=== PATIENT | female | born 1980 | race Two or more races ===

== ENCOUNTER 2022-06-22 08:15 | Emergency (ER) | payer MEDICAID, OTHER ==
[~2022-06-22] VITALS: Ht 160 cm; Wt 88.6 kg
[2022-06-22 09:00] VITALS: BP 122/86
[2022-06-22] MEDS ORDERED: PROM1SOL4 PO (09:29)
[2022-06-22] MEDS ORDERED: IBUP800T27 PO (09:29)
[2022-06-22] MEDS ORDERED: AMOX-277 PO (09:29)
== END 2022-06-22 09:46 | disposition home or self-care (01) ==
LOC: ER 08:22
DX: J03.90 Acute tonsillitis, unspecified (principal); J20.9 Acute bronchitis, unspecified; H66.92 Otitis media, unspecified, left ear; R07.89 Other chest pain
CPT/HCPCS: 71045

== ENCOUNTER → 2022-07-13 | Emergency (ER) | payer MEDICAID, OTHER ==
[~2022-07-13] VITALS: Ht 160 cm; Wt 104.5 kg
[~2022-07-13] MED LIST: ACETAMINOPHEN 325 MG TAB PO ONE; AMOX-277 PO; CYCLOBENZAPRINE HCL 10 MG TAB PO ONE; HYDROcodone-ACET 5/325MG TAB PO ONE; IBUP800T27 PO; IOHEXOL 300 MG/ML 100ML BOTTLE IJ ONE; LACTATED RINGER'S 1,000 ML IV ONE; PROM1SOL4 PO; TETANUS-DIPTH-ACEL PERTUSSIS 0.5ML SYR Tdap IM ONE; cefTRIAXone 1GM/50ML D5W 50 ML IV ONE
[2022-07-13 07:09] LABS: Basophils # (auto) 0 10 ^3/uL (0-0.2); Eosinophils # (auto) 0.1 10 ^3/uL (0-0.8); Eosinophils % (auto) 0.6 % (0.0-7.0); Hemoglobin 11.3 g/dL (12.2-16.2); Lymphocytes # (auto) 1.2 10 ^3/uL (0.4-5.4); Nucleated Red Blood Cells % 0.1 %
[2022-07-13 07:11] LABS: Basophils % (auto) 0.2 % (0.0-2.0); Hematocrit 36.7 % (36.0-46.0); Lymphocytes % (auto) 12.1 % (10.0-50.0); Mean Corpuscular Hgb Conc. 30.7 g/dL (32.0-36.0); Mean Corpuscular Volume 71.4 fL (80.0-100.0); Monocytes # (auto) 0.4 10 ^3/uL (0-1.3); Neutrophils # (auto) 8.1 10 ^3/uL (1.6-8.6); Neutrophils % (auto) 83.1 % (37.0-80.0); Red Blood Cells 5.13 10^6/uL (4.0-5.20); White Blood Cell 9.7 10^3/uL (4.4-10.8)
[2022-07-13 07:25] LABS: Albumin 3.4 g/dL (3.4-5.0); BUN/Creatinine Ratio 16.3; Calcium 8.9 mg/dL (8.5-10.1); Potassium 4.7 mmol/L (3.5-5.1)
[2022-07-13 07:27] LABS: Bilirubin, Total 0.3 mg/dL (0.2-1.0); Lactic Acid w/Reflex 2.5 mmol/L (0.4-2.0); Total Protein 7.1 g/dL (6.4-8.2)
[2022-07-13 12:18] LABS: Urine Bacteria NONE SEEN /hpf (None Seen); Urine Blood 3+ /uL (Negative); Urine Mucus FEW (None Seen); Urine WBC 54 /hpf (0 - 5)
[2022-07-13 12:49] LABS: Urine Specific Gravity > 1.050 (1.001-1.035)
[2022-07-13 17:45] VITALS: BP 162/83
== END | disposition short-term general hospital (02) ==
LOC: ER 05:40
DX: S12.600A Unspecified displaced fracture of seventh cervical vertebra, initial encounter for closed fracture (principal); S22.019A Unspecified fracture of first thoracic vertebra, initial encounter for closed fracture; S22.029A Unspecified fracture of second thoracic vertebra, initial encounter for closed fracture; T14.8XXA Other injury of unspecified body region, initial encounter; Z20.822 Contact with and (suspected) exposure to COVID-19; Z79.1 Long term (current) use of non-steroidal anti-inflammatories (NSAID); Z79.2 Long term (current) use of antibiotics; Z79.899 Other long term (current) drug therapy; Z91.040 Latex allergy status; V47.5XXA Car driver injured in collision with fixed or stationary object in traffic accident, initial encounter; Y93.89 Activity, other specified; Y92.410 Unspecified street and highway as the place of occurrence of the external cause; Y99.8 Other external cause status
CPT/HCPCS: 36415; 70450; 71045; 71260; 72125; 74177; 80053; 81001; 81025; 83605; 84484; 85025; 86850; 86900; 86901; 87426; 90471; 90715; 93005; 96365; 99285; J0696; Q9967

== ENCOUNTER 2023-04-07 14:41 | Emergency (ER) | payer MEDICAID, OTHER ==
[~2023-04-07] VITALS: Ht 160 cm; Wt 117.3 kg
[~2023-04-07 14:41] MED LIST changes: -ACETAMINOPHEN 325 MG TAB PO ONE; -AMOX-277 PO; +AMOX875T4 PO; -CYCLOBENZAPRINE HCL 10 MG TAB PO ONE; -HYDROcodone-ACET 5/325MG TAB PO ONE; +IBUP-1456 PO; -IBUP800T27 PO; -IOHEXOL 300 MG/ML 100ML BOTTLE IJ ONE; -LACTATED RINGER'S 1,000 ML IV ONE; -TETANUS-DIPTH-ACEL PERTUSSIS 0.5ML SYR Tdap IM ONE; -cefTRIAXone 1GM/50ML D5W 50 ML IV ONE
[2023-04-07 15:01] VITALS: BP 142/98; PULSE 103; RESP 18; O2SAT 100
[2023-04-07] MEDS ORDERED: SODIUM CHLORIDE 0.9% 1,000 ML IV ONE (15:15)
[2023-04-07] MEDS ORDERED: SODIUM CHLORIDE 0.9% 500 ML IVB ONE (15:15)
[2023-04-07 15:30] LABS: Basophils # (auto) 0 10 ^3/uL (0-0.2); Basophils % (auto) 0.2 % (0.0-2.0); Eosinophils # (auto) 0.1 10 ^3/uL (0-0.8); Lymphocytes # (auto) 1.2 10 ^3/uL (0.4-5.4); Monocytes # (auto) 0.3 10 ^3/uL (0-1.3); Neutrophils # (auto) 3.6 10 ^3/uL (1.6-8.6); Nucleated Red Blood Cells % 0.1 %
[2023-04-07 15:31] LABS: Eosinophils % (auto) 1.5 % (0.0-7.0); Hematocrit 34.7 % (36.0-46.0); Hemoglobin 10.7 g/dL (12.2-16.2); Lymphocytes % (auto) 23.7 % (10.0-50.0); Mean Corpuscular Hemoglobin 21.3 pg (28.0-32.0); Mean Corpuscular Volume 68.7 fL (80.0-100.0); Monocytes % (auto) 5.8 % (0.0-12.0); Neutrophils % (auto) 68.8 % (37.0-80.0); Red Blood Cells 5.04 10^6/uL (4.0-5.20); Red Cell Distribution Width 19.4 % (11.8-14.3); White Blood Cell 5.2 10^3/uL (4.4-10.8)
[2023-04-07 15:41] LABS: INR 1.04 (0.9-1.15); Partial Thromboplastin Time 29.1 SEC (24.5-34.5); Prothrombin Time 10.9 sec (9.3-11.8)
[2023-04-07 15:49] LABS: Alanine Aminotransferase 29 U/L (7-40); Alkaline Phosphatase 172 U/L (46-116); Calcium 8.8 mg/dL (8.7-10.4); Carbon Dioxide 25 mmol/L (20-30); Chloride 105 mmol/L (98-107); Glucose 188 mg/dL (74-106); Potassium 3.9 mmol/L (3.5-5.1)
[2023-04-07 15:50] LABS: Albumin 4.4 g/dL (3.2-4.8); Anion Gap 7 (5-15); Aspartate Aminotransferase 23 U/L (13-40); BUN/Creatinine Ratio 9.9 (10.0-20.0); Bilirubin, Total 0.2 mg/dL (0.2-1.0); Blood Urea Nitrogen 7 mg/dL (9-23); Sodium 137 mmol/L (136-145)
[2023-04-07 15:51] LABS: Total Protein 6.7 g/dL (5.7-8.2)
[2023-04-07 16:06] LABS: Urine Bacteria NONE SEEN /hpf (None Seen); Urine Blood 3+ /uL (Negative); Urine Clarity HAZY (Clear); Urine Color PINK (Yellow); Urine Protein, UAD 1+ (Negative); Urine Specific Gravity 1.015 (1.001-1.035); Urine Urobilinogen Normal (Negative); Urine WBC 23 /hpf (0 - 5)
[2023-04-07] MEDS ORDERED: NITR-87 PO (19:12)
== END 2023-04-07 20:57 | disposition home or self-care (01) ==
LOC: ER 14:41
DX: D25.9 Leiomyoma of uterus, unspecified (principal); R10.2 Pelvic and perineal pain; N85.2 Hypertrophy of uterus; D50.0 Iron deficiency anemia secondary to blood loss (chronic); N93.9 Abnormal uterine and vaginal bleeding, unspecified; N39.0 Urinary tract infection, site not specified; Z98.890 Other specified postprocedural states; Z91.040 Latex allergy status; Z79.899 Other long term (current) drug therapy
CPT/HCPCS: 36415; 76830; 76856; 80053; 81001; 83690; 83735; 84702; 85025; 85610; 85730

== ENCOUNTER 2025-05-26 13:30 | Inpatient (IN) | payer MEDICAID, OTHER ==
[~2025-05-26] VITALS: Ht 160 cm; Wt 128.0 kg
[2025-05-26 13:30] VITALS: PULSE 87; RESP 15; O2SAT 100
[~2025-05-26 13:30] MED LIST changes: +NITR-87 PO
--- NOTE | 2025-05-26 13:36 | ED.PDOC ---
HPI (NEURO) HPI Comments 44 year old female with PMHx CVA-x2 presents to the ED with a chief complaint of weakness onset today. Patient came to [facility] ICU to visit her father, was with her daughters, when she began experiencing dizziness, blurred vision, weakness, facial droop, became unresponsive. Rapid response was called, patient was brought to ED. Upon ED arrival, patient is not following commands, has facial drooping, LT sided weakness. Code stroke was activated. Daughter states patient has been experiencing nausea/vomiting, headache for the past 3 days, has history of 2 CVA in the past. Currently on Aspirin. No other symptoms or modifying factors present at this time. Time Seen by MD: 13:25 Primary Care Provider: [facility] prim care Reviewed Notes: Medications, Allergies Information Source: Patient Mode of Arrival: Wheelchair Severity: Moderate Timing: Minutes Duration: Since onset Prehospital treatment: None Weakness Location: (L) Sided Symptoms: Weakness, Change of vision, Other Before: Normal History of: CVA Modifying factors: Nothing Past Medical History PAST MEDICAL HISTORY: Anemia, CVA Surgical History: [employer] History: Denies all [employer]ER Hx Family History Family History: Reviewed,noncontributory to illness, Unknown Social History Smoker: Non-Smoker Alcohol: Denies ETOH Use Drugs: Denies Drug Use Lives In: Home Constitutional: denies: chills, diaphoresis, fatigue, fever, malaise, sweats, weakness, others EENTM: denies: blurred vision, double vision, ear bleeding, ear discharge, ear drainage, ear pain, ear ringing, eye pain, eye redness, hearing loss, mouth pain, mouth swelling, nasal discharge, nose bleeding, nose congestion, nose pain, photophobia, tearing, throat pain, throat swelling, voice changes, others Cardiovascular: denies: chest pain, dizzy spells, diaphoresis, Dyspnea on exertion, edema, irregular heart beat, left arm pain, lightheadedness, palpitations, PND, syncope, others Gastrointestinal: denies: abdomen distended, abdominal pain, blood streaked bowels, constipated, diarrhea, dysphagia, difficulty swallowing, hematemesis, melena, nausea, poor appetite, poor fluid intake, rectal bleeding, rectal pain, vomiting, others Genitourinary: denies: abnormal vagina bleeding, burning, dyspareunia, dysuria, flank pain, frequency, hematuria, incontinence, pain, , vagina discharge, urgency, others Neurological: reports: dizziness, headache, others (facial drooping); denies: fainting, left sided numbness, left sided weakness, numbness, paresthesia, pre- existing deficit, right sided numbness, right sided weakness, seizure, speech problems, tingling, tremors, weakness Musculoskeletal: denies: back pain, gout, joint pain, joint swelling, muscle pain, muscle stiffness, neck pain, others Integumetry: denies: bruises, change in color, change in hair/nails, dryness, laceration, lesions, lumps, rash, wounds, others Allergic/Immunocompromised: denies: Difficulty Healing, Frequent Infections, Hives, Itching, others Hematologic/Lymphatic: denies: anemia, blood clots, easy bleeding, easy bruising, swollen glands, others Endocrine: denies: excessive hunger, excessive sweating, excessive thirst, excessive urination, flushing, intolerance to cold, intolerance to heat, unexpla ined weight gain, unexplained weight loss, others Psychiatric: denies: anxiety, bipolar disorder, depression, hopeless, panic disorder, schizophrenia, sleepless, suicidal, others All Other Systems: Reviewed and Negative Physical Exam General Appearance: Severe Distress HEENT: PERRL/EOMI Neck: Normal Inspection Respiratory: No Respiratory Distress Cardiovascular: No Edema Breast Exam: Deferred Gastrointestinal: Non Tender Genitalia: Deferred Pelvic: Deferred Rectal: Deferred Extremities: No pedal edema Neurologic: Other (LT sided facial dropped, LT sided weakness, not following commands) Cerebellar Function: NOT DONE Reflexes: NOT DONE Skin: Normal Color Lymphatic: NOT DONE Was a procedure done? Was a procedure done?: No Differential Diagnosis (SZ) Seizure: Hypocalcemia, Hypoglycemia, Hyponatremia CVA: CVA, Hypoxemia, TIA General Weakness: Anemia, CVA, Dehydration Headache: Migraine, Closed Head Injury, CVA X-Ray, Labs, Meds, VS Vital Signs Date Time Temp Pulse Resp B/P (MAP) Pulse Ox O2 Delivery O2 Flow Rate FiO2 05/26/25 13:30 98.8 84 20 126/90 100 98.8 Lab Test 05/26/25 14:52 05/26/25 13:54 05/26/25 13:50 Range/Units Troponin I High Sensitivity Pending < 3 L </=34 ng/L Blood Gas Specimen Type Arterial Blood Gas Sample Site Right radial Blood Gas Patient Temperature 37.0 Arterial Blood Date Drawn [id number] Arterial Blood pH 7.426 7.350-7.450 Arterial Blood Partial Pressure CO2 39.9 32.0-45.0 mmHg Arterial Blood Partial Pressure O2 87.5 83.0-108.0 mmHg Arterial Blood HCO3 25.7 21.0-28.0 mmol/L Arterial Blood Oxygen Saturation 95.7 94.0-98.0 % Arterial Blood Base Excess 1.3 -2.0-3.0 mmol/L Arterial Blood Oxyhemoglobin 94.4 94.0-98.0 % Arterial Blood Carboxyhemoglobin 1.1 0.5-1.5 % Arterial Blood Methemoglobin 0.3 0.0-1.5 % Arterial Blood Deoxyhemoglobin 4.2 0.0-5.0 % Zeus Test Yes Blood Gas Total Hemoglobin 14.10 12.0-16.0 g/dL Blood Gas Liter Flow 2.00 Blood Gas Modality Nasal cannula FiO2 % 28.0 White Blood Count 6.7 4.4-10.8 10^3/uL Red Blood Count 5.30 H 4.0-5.20 10^6/uL Hemoglobin 13.7 12.2-16.2 g/dL Hematocrit 41.7 36.0-46.0 % Mean Corpuscular Volume 78.6 L 80.0-100.0 fL Mean Corpuscular Hemoglobin 25.8 L 28.0-32.0 pg Mean Corpuscular Hemoglobin Concent 32.8 32.0-36.0 g/dL Red Cell Distribution Width 17.3 H 11.8-14.3 % Platelet Count 283 140-450 10^3/uL Mean Platelet Volume 7.0 6.9-10.8 fL Neutrophils (%) (Auto) 78.1 37.0-80.0 % Lymphocytes (%) (Auto) 16.4 10.0-50.0 % Monocytes (%) (Auto) 5.1 0.0-12.0 % Eosinophils (%) (Auto) 0.3 0.0-7.0 % Basophils (%) (Auto) 0.1 0.0-2.0 % Neutrophils # (Auto) 5.3 1.6-8.6 10 ^3/uL Lymphocytes # (Auto) 1.1 0.4-5.4 10 ^3/uL Monocytes # (Auto) 0.3 0-1.3 10 ^3/uL Eosinophils # (Auto) 0 0-0.8 10 ^3/uL Basophils # (Auto) 0 0-0.2 10 ^3/uL Nucleated Red Blood Cells 0.3 % Prothrombin Time 10.8 9.3-11.8 sec Prothrombin Time INR 1.02 0.9-1.15 Activated Partial Thromboplast Time 27.8 24.5-34.5 SEC Sodium Level 140 136-145 mmol/L Potassium Level 3.6 3.5-5.1 mmol/L Chloride Level 102 98-107 mmol/L Carbon Dioxide Level 27 20-31 mmol/L Anion Gap 11 5-15 Blood Urea Nitrogen 10 9-23 mg/dL Creatinine 0.89 0.550-1.02 mg/dL Glomerular Filtration Rate Calc 82 >90 mL/min BUN/Creatinine Ratio 11.2 10.0-20.0 Serum Glucose 140 H 74-106 mg/dL Calcium Level 9.8 8.7-10.4 mg/dL Magnesium Level 2.0 1.6-2.6 mg/dL Total Bilirubin 0.4 0.2-1.0 mg/dL Aspartate Amino Transferase (AST) 19 13-40 U/L Alanine Aminotransferase (ALT) 24 7-40 U/L Alkaline Phosphatase 184 H 46-116 U/L B-Type Natriuretic Peptide 8.55 0-100 pg/mL Total Protein 7.8 5.7-8.2 g/dL Albumin 4.8 3.2-4.8 g/dL Current Medications Medications (Trade) Dose Ordered Sig/Ana Route Start Time Stop Time Status Last Admin Sodium Chloride 1,000 ml @ 1,000 mls/hr Q1H ONCE IV 05/26/25 14:15 05/26/25 15:14 05/26/25 14:55 Metoclopramide HCl (Reglan Injection) 10 mg ONCE ONCE IV 05/26/25 14:15 05/26/25 14:16 DC 05/26/25 14:[address] [address] Ph: [phone] DIAGNOSTIC IMAGING Diagnostic Imaging Report : [id number] Signed PATIENT: BRADENTAYE SKYLARACCT: [id number] UNIT: [id number] : 1980 LOC: ER ROOM / BED: / AGE / SEX: 44 / F ADM STATUS: REG ER SERVICE 30 ORDERING PHYSICIAN: HATTIE SHERIDAN MD PROCEDURE(s): CTH - STROKE CTH REASON: facial droop ORDER NUMBER(s): [id number], ACCESSION NUMBER(s): [id number] CT STROKE CTH INDICATION: facial droop EXAM DATE: 05/26/2025 01:36 PM COMPARISON: HEAD WITHOUT CONTRAST on DOS: 07/13/22 TECHNIQUE: CT of the head without intravenous contrast. RADIATION DOSE: CTDIvol: 25 mGy, DLP: 250 mGy*cm FINDINGS: There is no evidence of acute intracranial hemorrhage, extra-axial collection, mass effect, midline shift, herniation or hydrocephalus. The ventricles, sulci and cisterns are age appropriate. The todd-white differentiation is intact. The visualized paranasal sinuses and mastoid air cells are clear. The surrounding soft tissues and osseous structures are unremarkable. Moderate periventricular white matter disease is present, likely secondary to microvascular angiopathy. IMPRESSION: No evidence of acute intracranial hemorrhage, mass effect or hydrocephalus. ATED BY: SARAH VALLE MD DICTATED DATE/TIME: 05/26/251417 SIGNED BY: SARAH VALLE MD SIGNED DATE/TIME: 05/26/251417 CC: [place] [id number] Ph: [phone] DIAGNOSTIC IMAGING Diagnostic Imaging Report : [id number] Signed PATIENT: BRADENTAYE SKYLARACCT: [id number] UNIT: [id number] : 1980 LOC: ER ROOM / BED: / AGE / SEX: 44 / F ADM STATUS: REG ER SERVICE 30 ORDERING PHYSICIAN: HATTIE SHERIDAN MD PROCEDURE(s): CXR1 - CHEST XRAY 1 VIEW REASON: facial droop ORDER NUMBER(s): [id number], ACCESSION NUMBER(s): [id number] CHEST RADIOGRAPH INDICATION: facial droop TECHNIQUE: Single frontal view of the chest was obtained COMPARISON: CXR1 on DOS: 07/13/22, CHEST XRAY 1 VIEW on DOS: 07/13/22, CXR1 on DOS: 06/22/22 FINDINGS: Lines and Tubes: None Lungs: Or inspiratory effort Pleura: No effusion. No pneumothorax. Cardiomediastinal contours: Unremarkable Bones: No acute osseous abnormality. IMPRESSION: 1. Poor inspiratory effort. ATED BY: JASBIR ALVARENGA Jr., DO DICTATED DATE/TIME: 05/26/251414 SIGNED BY: JASBIR ALVARENGA Jr., SIGNED DATE/TIME: 05/26/251414 CC: Time of 1ST Reevaluation: 13:55 Reevaluation 1ST: Unchanged Patient Education/Counseling: Diagnosis, Treatment, Prognosis Family Education/Counseling: Diagnosis, Treatment, Prognosis Departure 1 Departure Time of Disposition: 15:14 (Patient with CVA versus complex migraine versus generic. Initial CT CTA and labs are benign. Neurology evaluated patient recommends admission and MRI. We will admit patient for further workup and expert consultation) Impression: Primary Impression: Suspected cerebrovascular accident (CVA) Additional Impression: Altered mental status Disposition: 09 ADMITTED INPATIENT Admit to: Tele Condition: Guarded Critical Care Note Critical Care Time?: Yes Critical care comment: Concern for CVA and stroke activation Authorized and Performed by: Hattie Sheridan MD Total critical care time: Approximately 38 minutes Due to a high probability of clinically significant, life threatening deterioration, the patient required my highest level of preparedness to intervene emergently and I personally spent this critical care time directly and personally managing the patient. This critical care time included obtaining a history; examining the patient; pulse oximetry; ordering and review of studies; arranging urgent treatment with development of a management plan; evaluation of patient's response to treatment; frequent reassessment; and, discussions with other providers. This critical care time was performed to assess and manage the high probability of imminent, life-threatening deterioration that could result in multi-organ failure. It was exclusive of separately billable procedures and treating other patients and teaching time. Please see my other sections and the rest of the note for further information on patient assessment and treatment. Stability Stability form required: No Heart Score Heart Score: Heart Score Response (Comments) Value History N/A 0 EKG N/A 0 Age N/A 0 Risk Factors N/A 0 Troponin N/A 0 Total 0 I personally scribed for HATTIE SHERIDAN MD ([email or web address]) on 05/26/25 at 13:36. Electronically submitted by Caroline Alexander ([email or web address]). I personally scribed for HATTIE SHERIDAN MD ([email or web address]) on 05/26/25 at 13:37. Electronically submitted by Caroline Alexander ([email or web address]). I personally scribed for HATTIE SHERIDAN MD ([email or web address]) on 05/26/25 at 14:22. Electronically submitted by Caroline Alexander ([email or web address]). I personally scribed for HATTIE SHERIDAN MD ([email or web address]) on 05/26/25 at 14:23. Electronically submitted by Caroline Alexander ([email or web address]). HATTIE SHERIDAN MD May 26, 2025 13:36
[2025-05-26 14:04] LABS: Hematocrit 41.7 % (36.0-46.0); Hemoglobin 13.7 g/dL (12.2-16.2); Mean Corpuscular Hemoglobin 25.8 pg (28.0-32.0); Mean Corpuscular Volume 78.6 fL (80.0-100.0); Nucleated Red Blood Cells % 0.3 %
--- NOTE | 2025-05-26 14:06 | BSKYNEURO ---
[facility] Note # Demographics Consult Type: Acute Stroke Level 1 (0-4.5 hrs) Patient Location: Emergency Room First Name: SEPTEMBER Last Name: BRADEN Date of : 1980 Age: 44 Gender: Female Facility: [facility] Time of Initial Page (): 05/26/2025 13:35 First Contact with Site (): 05/26/2025 13:36 # HPI History: Patient with a history of two prior strokes and migraine disorder who presents after developing an acute facial droop and becoming unresponsive while visiting family. She was noted to be very emotional while grandfather being intubated? On arrival, she was opening her eyes but not following commands, and her speech was limited to a few gurgled words. Medications: Aspirin; no other anticoagulation. She tells me her head and chest hurt Has a headache and says she doesnt know when the speech ahnge occured. Past Medical History: Two prior strokes, migraine disorder. Last Known Normal: by report 10 min prior but she is unable to tell me when her speech was last ewa. Associated Symptoms: - headache # Scores Time of exam and NIHSS (): 05/26/2025 13:53 Level of Consciousness 1a: [0] = Alert; keenly responsive LOC Questions 1b: [0] = Answers both questions correctly LOC Commands 1c: [0] = Performs both tasks correctly Best Gaze 2: [0] = Normal Visual 3: [0] = No visual loss Facial Palsy 4: [1] = Minor paralysis Motor Arm Left 5a: [2] = Some effort against gravity Motor Arm Right 5b: [2] = Some effort against gravity Motor Leg Left 6a: [0] = No drift Motor Leg Right 6b: [0] = No drift Limb Ataxia 7: [0] = Absent Sensory 8: [0] = Normal Best Language 9: [0] = No aphasia Dysarthria 10: [0] = Normal Extinction and Inattention 11: [0] = No abnormality NIHSS Total: 5 # Exam Vitals: vital signs reviewed Additional Neurologic Exam: inconsistent fluctuating facial symmetry and speech pattern. when arms dropped over head there is variable responise - sometimes appears to have both arms fling to the side actively - at other times both arms fall but avoid head. Right leg is anti gravity but not lifting as high as left leg. # Data Head CT: - no bleed - preliminarily reviewed by me, please refer to radiology read for official reading # Assessment Impression: - Stroke Mimic Favor mimic such as migraine. Chest pain waterman per primary team # Plan Thrombolytic/Intervention: NOT IV Thrombolysis or IA Intervention candidate Thrombolytic Exclusion (< 3 hour window): - non-disabling deficit Intraarterial Exclusion: - clinical exam not consistent with presence of large vessel occlusion (LVO), can reconsider if LVO found on vascular imaging Target Blood Pressure: SBP < 180 Imaging: (urgency: STAT): - CT Angiogram Head and CT Angiogram Neck AND call back with results if abnormal Medication: - migraine cocktail: Toradol 30 mg IV + Benadryl 25 mg IV + antiemetic IV Other: - If patient has any neurological deterioration please call me back immediately - I have discussed my recommendations with the referring provider - If CTA negative and symptoms resolved may dispo; otherwise would admit for MRI and symptom control - would not pursue stroke work-up if MRI is negative # Logistics Attestation of consult completion: The patient is located at: [facility]. Facility staff participated in the visit. I performed this telemedicine visit from my offsite office utilizing interactive 2 way audio and visual telecommunication technology at the request of the onsite emergency room provider. Total time spent in telemedicine encounter: I spent 21 minutes reviewing clinical data and/or imaging, obtaining history, examining the patient, communicating with the onsite care team, and in preparation of this report. Critical Care time: 21 minutes of this encounter were critical care time. Due to a high probability of clinically significant, life-threatening neurologic deterioration, the patient required my highest level of preparedness to intervene emergently. I spent this critical care time managing the patient in conjunction with on-site providers who requested my consultation. In addition to the above, this critical care time included recommendation and review of studi es, including imaging; arranging an urgent treatment and management plan with on-site providers; evaluation of patient's response to treatment; and documentation. This critical care time was performed to assess and manage the high probability of imminent, life-threatening deterioration that could result in neurologic catastrophe. # Demographics First Name: SEPTEMBER Last Name: [facility] Facility: [facility] Electronically signed at 05/26/2025 14:06 ([place] Time) by Valeriy Hicks MD Yes MISSY HICKS MD May 26, 2025 14:06
[2025-05-26 14:09] LABS: Base Excess 1.3 mmol/L (-2.0-3.0)
--- NOTE | 2025-05-26 14:18 | DVH ---
CHEST RADIOGRAPH INDICATION: facial droop TECHNIQUE: Single frontal view of the chest was obtained COMPARISON: CXR1 on DOS: 07/13/22, CHEST XRAY 1 VIEW on DOS: 07/13/22, CXR1 on DOS: 06/22/22 FINDINGS: Lines and Tubes: None Lungs: Or inspiratory effort Pleura: No effusion. No pneumothorax. Cardiomediastinal contours: Unremarkable Bones: No acute osseous abnormality. IMPRESSION: 1. Poor inspiratory effort.
[2025-05-26 14:19] LABS: Alanine Aminotransferase 24 U/L (7-40); Albumin 4.8 g/dL (3.2-4.8); Anion Gap 11 (5-15); BUN/Creatinine Ratio 11.2 (10.0-20.0); Bilirubin, Total 0.4 mg/dL (0.2-1.0); Blood Urea Nitrogen 10 mg/dL (9-23); Calcium 9.8 mg/dL (8.7-10.4); Carbon Dioxide 27 mmol/L (20-31); Chloride 102 mmol/L (98-107); Magnesium 2.0 mg/dL (1.6-2.6); Potassium 3.6 mmol/L (3.5-5.1); Sodium 140 mmol/L (136-145); Total Protein 7.8 g/dL (5.7-8.2)
[2025-05-26 14:20] LABS: Alkaline Phosphatase 184 U/L (46-116); Glucose 140 mg/dL (74-106)
--- NOTE | 2025-05-26 14:20 | DVH ---
CT STROKE CTH INDICATION: facial droop EXAM DATE: 05/26/2025 01:36 PM COMPARISON: HEAD WITHOUT CONTRAST on DOS: 07/13/22 TECHNIQUE: CT of the head without intravenous contrast. RADIATION DOSE: CTDIvol: 25 mGy, DLP: 250 mGy*cm FINDINGS: There is no evidence of acute intracranial hemorrhage, extra-axial collection, mass effect, midline shift, herniation or hydrocephalus. The ventricles, sulci and cisterns are age appropriate. The todd-white differentiation is intact. The visualized paranasal sinuses and mastoid air cells are clear. The surrounding soft tissues and osseous structures are unremarkable. Moderate periventricular white matter disease is present, likely secondary to microvascular angiopathy. IMPRESSION: No evidence of acute intracranial hemorrhage, mass effect or hydrocephalus.
[2025-05-26 14:23] LABS: INR 1.02 (0.9-1.15); Partial Thromboplastin Time 27.8 SEC (24.5-34.5); Prothrombin Time 10.8 sec (9.3-11.8)
[2025-05-26] MEDS: METOCLOPRAMIDE HCL 5MG/ml INJ 2ml VIAL IV ONE (14:54)
[2025-05-26] MEDS: SODIUM CHLORIDE 0.9% 1,000 ML IV ONE (14:55)
[2025-05-26] MEDS: SODIUM CHLORIDE 0.9% 1,000 ML IV SCH (16:15)
[2025-05-26] MEDS ORDERED: DOCUSATE SOD 100 MG CAP PO PRN (16:15)
[2025-05-26] MEDS: ATORVASTATIN 20 MG TAB PO SCH (16:15)
--- NOTE | 2025-05-26 16:16 | DVHHPRES ---
History of Present Illness Resident Creating Document: LEONARD JOHNSON RESIDENT History of Present Illness Ms. Robert, a 44-year-old female with a history of complex migraine, hemiplegic migraine, two prior ?CVAs , hypertension, diabetes mellitus type 2, morbid obesity, vitamin-D deficiency, anxiety disorder /depression, and chronic microcytic anemia presented to the ED after becoming dizzy, experiencing blurred vision, facial droop, left-sided weakness, and transient unresponsiveness while visiting her father in the ICU; code stroke was activated, and her daughter re ports nausea, vomiting, and headache with precipitating aura for the past three days; patient is currently on aspirin and denies other symptoms or modifying factors. patient had similar episodes which was found to have complex migraine and resolved spontaneously over 12-36 hours but needed hospitalization. NIHSS Total: 5 limited history obtained from the daughters who are emotionally overwhelmed. 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 OBGYN history: Active heavy menstruation, healthy 2 kids. Review of Systems Constitutional: No: Fever, Chills, Sweats, Weakness, Malaise, Other Eyes: No: Pain, Vision change, Conjunctivae inflammation, Eyelid inflammation, Other, Redness ENT: No: Ear pain, Ear discharge, Nose pain, Nose discharge, Nose congestion, Mouth pain, Mouth swelling, Throat pain, Throat swelling, Other Respiratory: No: Cough, Dry, Shortness of breath, SOB with excertion, Wheezing, Hemoptysis, Pleuritic Pain, Sputum, Wheezing, Other Cardiovascular: No: Chest Pain, Palpitations, Orthopnea, Paroxysmal Noc. Dyspnea, Edema, Lt Headedness, Other Gastrointestinal: Nausea, Vomiting; No: Abdominal Pain, Diarrhea, Constipation, Melena, Hematochezia, Other Genitourinary: No Dysuria, No Frequency, No Incontinence, No Hematuria, No Retention, No Other Musculoskeletal: No: other, neck pain, shoulder pain, arm pain, back pain, hand pain, leg pain, foot pain Skin: No: Rash, Lesions, Jaundice, Bruising, Other Neurological: Weakness, Numbness, Incoordination, Change in speech, Confusion, Other (Headache) Allergies: Coded Allergies: Latex (Verified Allergy, Unknown, 07/13/22) Exam Vital Signs Vital Signs Date Time Temp Pulse Resp B/P (MAP) Pulse Ox O2 Delivery O2 Flow Rate FiO2 05/26/25 13:30 98.8 87 15 126/90 (102) 100 98.8 General Appearance: Alert, moderate distress HEENT: Atraumatic, PERRLA, EOMI, Other (sweats) Respiratory: Clear to auscultation, Normal air movement, Other (spo2 95% in RA) Cardiovascular: Regular rate, Normal S1, Normal S2, No murmurs, Other (BP well maintained. ) Abdominal: Normal bowel sounds, Soft, No tenderness, No hepatospenomegaly, No masses Extremities: No clubbing, No cyanosis, No edema, Normal pulses, No tenderness/swelling Skin: No rashes, No breakdown, No significant lesion Neuro: Other (cannot be checked. the patient was not following the commands well. i attended the emergency response, but right upper arm weakness was positive. ) Psych/Mental Status: Mental status NL, Other (anxious. ) Labs/Xrays Labs Test 05/26/25 14:52 05/26/25 13:54 05/26/25 13:50 Range/Units Troponin I High Sensitivity < 3 L </=34 ng/L Blood Gas Specimen Type Arterial Blood Gas Sample Site Right radial Blood Gas Patient Temperature 37.0 Arterial Blood Date Drawn [id number] Arterial Blood pH 7.426 7.350-7.450 Arterial Blood Partial Pressure CO2 39.9 32.0-45.0 mmHg Arterial Blood Partial Pressure O2 87.5 83.0-108.0 mmHg Arterial Blood HCO3 25.7 21.0-28.0 mmol/L Arterial Blood Oxygen Saturation 95.7 94.0-98.0 % Arterial Blood Base Excess 1.3 -2.0-3.0 mmol/L Arterial Blood Oxyhemoglobin 94.4 94.0-98.0 % Arterial Blood Carboxyhemoglobin 1.1 0.5-1.5 % Arterial Blood Methemoglobin 0.3 0.0-1.5 % Arterial Blood Deoxyhemoglobin 4.2 0.0-5.0 % Zeus Test Yes Blood Gas Total Hemoglobin 14.10 12.0-16.0 g/dL Blood Gas Liter Flow 2.00 Blood Gas Modality Nasal cannula FiO2 % 28.0 White Blood Count 6.7 4.4-10.8 10^3/uL Red Blood Count 5.30 H 4.0-5.20 10^6/uL Hemoglobin 13.7 12.2-16.2 g/dL Hematocrit 41.7 36.0-46.0 % Mean Corpuscular Volume 78.6 L 80.0-100.0 fL Mean Corpuscular Hemoglobin 25.8 L 28.0-32.0 pg Mean Corpuscular Hemoglobin Concent 32.8 32.0-36.0 g/dL Red Cell Distribution Width 17.3 H 11.8-14.3 % Platelet Count 283 140-450 10^3/uL Mean Platelet Volume 7.0 6.9-10.8 fL Neutrophils (%) (Auto) 78.1 37.0-80.0 % Lymphocytes (%) (Auto) 16.4 10.0-50.0 % Monocytes (%) (Auto) 5.1 0.0-12.0 % Eosinophils (%) (Auto) 0.3 0.0-7.0 % Basophils (%) (Auto) 0.1 0.0-2.0 % Neutrophils # (Auto) 5.3 1.6-8.6 10 ^3/uL Lymphocytes # (Auto) 1.1 0.4-5.4 10 ^3/uL Monocytes # (Auto) 0.3 0-1.3 10 ^3/uL Eosinophils # (Auto) 0 0-0.8 10 ^3/uL Basophils # (Auto) 0 0-0.2 10 ^3/uL Nucleated Red Blood Cells 0.3 % Prothrombin Time 10.8 9.3-11.8 sec Prothrombin Time INR 1.02 0.9-1.15 Activated Partial Thromboplast Time 27.8 24.5-34.5 SEC Sodium Level 140 136-145 mmol/L Potassium Level 3.6 3.5-5.1 mmol/L Chloride Level 102 98-107 mmol/L Carbon Dioxide Level 27 20-31 mmol/L Anion Gap 11 5-15 Blood Urea Nitrogen 10 9-23 mg/dL Creatinine 0.89 0.550-1.02 mg/dL Glomerular Filtration Rate Calc 82 >90 mL/min BUN/Creatinine Ratio 11.2 10.0-20.0 Serum Glucose 140 H 74-106 mg/dL Calcium Level 9.8 8.7-10.4 mg/dL Magnesium Level 2.0 1.6-2.6 mg/dL Total Bilirubin 0.4 0.2-1.0 mg/dL Aspartate Amino Transferase (AST) 19 13-40 U/L Alanine Aminotransferase (ALT) 24 7-40 U/L Alkaline Phosphatase 184 H 46-116 U/L B-Type Natriuretic Peptide 8.55 0-100 pg/mL Total Protein 7.8 5.7-8.2 g/dL Albumin 4.8 3.2-4.8 g/dL SEPSIS Sepsis Screen Date sepsis recognized/suspect: May 26, 2025 Time Sepsis recognized/suspect: 1329 Recent Procedure: No On Antibiotic Therapy: No Respiratory Rate >20: No Heart Rate >90: No Temp<36 C (96.8 F) or >38.3 C: No SBP <90 or MAP <65 mmHG: No New Acute Mental Status Change: No Is the patient on CPAP, BIPAP,: No Physician Orders Stroke Assessment (05/26/25 13:31) Vital Signs .PER UNIT PROTOCOL (05/26/25 13:31) Taping Machine Operator (05/26/25 13:31) Accurate Weight In Kg (05/26/25 13:31) Electrocardigram (05/26/25 13:31) Accucheck (05/26/25 13:31) Ct Head Cva (05/26/25 13:31) Chest Xray 1 View (05/26/25 13:31) * Neurology Consult (05/26/25 13:31) 2 Large Bore Ivs (20mg Or Larg (05/26/25 13:31) Nursing Dysphagia Screen (05/26/25 13:31) Neuro Checks Per Unit Protocol (05/26/25 13:31) Electrocardigram (05/26/25 14:31) Electrocardigram (05/26/25 16:31) Troponin-I Hs (05/26/25 16:31) Insert Vargas Catheter QSHIFT (05/26/25 13:35) Urine Bacterial Culture (05/26/25 13:35) Abg W/ Co-Ox (05/26/25 13:45) Admit (05/26/25 16:10) Allergies (05/26/25 16:10) Code Status (05/26/25 16:10) 0.9% Ns 1000 Ml (05/26/25 16:15) Hydrocodone-Acet 5/325mg Tab (Nutrioso 5/32 (05/26/25 16:15) Ondansetron Hcl (Zofran) (05/26/25 16:15) Docusate Sodium Capsule (Colace Capsule) (05/26/25 16:15) Complete Blood Count (05/27/25 04:00) Comprehensive Metabolic Panel (05/27/25 04:00) Npo (Nothing By Mouth) Diet (05/26/25 Dinner) Pt Request For Service (05/26/25 16:10) Echo 2d Mode Cardiac Dop (05/26/25 16:10) Carotid Duplx W Color Dop (05/26/25 16:10) Condition: Serious (05/26/25 16:10) Acetaminophen Tablet (Tylenol Tablet) (05/26/25 16:15) Morphine Sulfate Injection (05/26/25 16:15) Sequential Compression Device (05/26/25 ) Aspirin Chewable Tablet (05/26/25 16:15) Atorvastatin (Lipitor) (05/26/25 16:15) Vital Signs Date Time Temp Pulse Resp B/P (MAP) Pulse Ox O2 Delivery O2 Flow Rate FiO2 05/26/25 13:30 98.8 87 15 126/90 (102) 100 98.8 05/26/25 13:30 98.8 84 20 126/90 100 98.8 Laboratory Tests Test 05/26/25 13:50 White Blood Count 6.7 10^3/uL (4.4-10.8) Medications Medications Dose Ordered Sig/Ana Route Start Time Stop Time Status Last Admin Dose Admin Metoclopramide HCl 10 mg ONCE ONCE IV 05/26/25 14:15 05/26/25 14:16 DC 05/26/25 14:54 10 MG Sodium Chloride 1,000 ml @ 1,000 mls/hr Q1H ONCE IV 05/26/25 14:15 05/26/25 15:14 DC 05/26/25 14:55 1,000 MLS/HR Assessment/Plan Assessment/Plan #Stroke/ TIA: Acute headache, focal neurologic deficits on the left upper arm and left face, CT head negative for intracranial hemorrhage, neurology evaluation, physical therapy evaluation, aspirin, atorvastatin, further workup with carotid Doppler, bubble study with echo, telemetry for tracing rhythm, interval MRI. #known history of complex migraine / hemiplegic migraine: Stroke mimic, Given the chronic migraine history with hemiplegia and current complex management with outpatient neurology with Dr. Barrera , previously was on topiramate with Rexulti 2 mg daily, Minipress and relevant history very well pointing towards alternative diagnosis of migraine. Close follow up needed , neuro checks. IV ondansetron for nausea. #Ruled out aspiration pneumonia /Pneumonitis clinically: Chest x-ray, hemodynamically otherwise stable, aspiration precautions, NPO, for now bedside swallow evaluation to complete. IV hydration to continue. #As per patient family, prior strokes: Although medication reconciliation pointing towards more of migraine management, longitudinal outpatient neurology follow up to continue. #Grade 3 obesity: Morbid obesity, BMI 45.7, patient on Wegovy, continue outpatient herrera, weight loss and lifestyle modification we will be helpful. #Vitamin-D deficiency: Home dose medication to continue when patient is able to tolerate oral diet. #anxiety/depression: Patient is at home on sertraline 100 mg daily around with bupropion XL , start medications when patient is able to tolerate oral diet. #Microcytic anemia: Likely iron-deficiency, MCV 78.6, RDW 17.3, no active bleeding noted. Iron panel to check, to at ferrous sulfate supplementation at discharge if iron-deficiency. PUD prophylaxis: protonix 40mg IV daily DVT prophylaxis: Levonox 40mg/SCD Barriers to discharge: Medical diagnosis and management in progress. Patient lives with family. Independent for ADL. PT consulted. PCP: Dr. King, primary neurologist Dr. Barrera Specialist Relevant To Admission: Code stroke was called, Neurology, consulted. Case discussed with Dr. Gunter. Code Status: Full Code. Discussion for goals of care and care plan needed total 33 minutes bedside. presumptive full code, discussion completed with the daughters at bedside. Plan discussed with: Patient, Daughter My Orders Orders - LEONARD JOHNSON RESIDENT Procedure Category Date Status Time Admit ADMIT 05/26/25 Transmitted 16:10 Allergies SHWETHA 05/26/25 Transmitted 16:10 Code Status CODE 05/26/25 Transmitted 16:10 0.9% Ns 1000 Ml PHA 05/26/25 Transmitted 16:15 Hydrocodone-Acet PHA 05/26/25 Transmitted 5/325mg Tab (Nutrioso 16:15 Ondansetron Hcl PHA 05/26/25 Transmitted (Zofran) 16:15 Docusate Sodium PHA 05/26/25 Transmitted Capsule (Colace 16:15 Complete Blood Count LAB 05/27/25 Verified 04:00 Comprehensive LAB 05/27/25 Verified Metabolic Panel 04:00 Npo (Nothing By DIET 05/26/25 Transmitted Mouth) Diet Dinner Pt Request For Service PT 05/26/25 Transmitted 16:10 Echo 2d Mode Cardiac US 05/26/25 Transmitted DOP 16:10 Carotid Duplx W Color US 05/26/25 Transmitted DOP 16:10 Condition: Serious SHWETHA 05/26/25 Transmitted 16:10 Acetaminophen Tablet PHA 05/26/25 Transmitted (Tylenol Tablet) 16:15 Morphine Sulfate PHA 05/26/25 Transmitted Injection 16:15 Sequential SHWETHA 05/26/25 Transmitted Compression Device Aspirin Chewable PHA 05/26/25 Transmitted Tablet 16:15 Atorvastatin (Lipitor) PHA 05/26/25 Transmitted 16:15 Date of Service: May 26, 2025 Billing Provider: EDWINA GUNTER MD Common Visit Codes: 29460-XAZOISO INP/OBS CARE (HIGH) Secondary Visit Codes: 45809-[id number] CARE PLAN 30 MINUTES LEONARD JOHNSON RESIDENT May 26, 2025 16:16
--- NOTE | 2025-05-26 17:13 | DVH ---
INDICATION: rule out carotid stenosis TECHNIQUE: Real-time ultrasound images of the neck vessels with todd-scale, color and wave Doppler were obtained. COMPARISON: None FINDINGS: Mild atherosclerotic plaque bilaterally. The following peak systolic velocities were recorded in cm/sec: Right internal carotid: 84 Right common carotid: 86 Right external carotid: 96 Right internal/common carotid ratio: 1.0 Left internal carotid: 89 Left common carotid: 79 Left external carotid: 104 Left internal/common carotid ratio: 1.1 Right vertebral artery: Patent with normal antegrade direction of flow. Left vertebral artery: Patent with normal antegrade direction of flow. IMPRESSION: No hemodynamically significant stenosis by velocity criteria.
[2025-05-26 18:34] VITALS: BP 109/76; PULSE 81; RESP 17; TEMP 97.7; O2SAT 100
[2025-05-26 20:00] VITALS: PULSE 85; PULSE 86; RESP 18; O2SAT 100
[2025-05-26] MEDS: MORPHINE SULFATE 4 MG/ML SYR/VIAL IV PRN (20:21)
[2025-05-26 21:00] VITALS: BP 137/94; PULSE 85; RESP 18; TEMP 97.8; O2SAT 100
[2025-05-27] VITALS (8 sets, daily range): BP systolic 116–136; BP diastolic 62–89; PULSE 72–96; RESP 16–18; TEMP 98–98.7; O2SAT 99–100
[2025-05-27 06:51] LABS: Mean Corpuscular Hemoglobin 25.5 pg (28.0-32.0)
[2025-05-27 06:53] LABS: Hematocrit 36.1 % (36.0-46.0); Hemoglobin 11.8 g/dL (12.2-16.2); Mean Corpuscular Volume 77.6 fL (80.0-100.0); Nucleated Red Blood Cells % 0.1 %
[2025-05-27 07:14] LABS: Alanine Aminotransferase 17 U/L (7-40); Anion Gap 12 (5-15); BUN/Creatinine Ratio 11.1 (10.0-20.0); Calcium 8.8 mg/dL (8.7-10.4); Carbon Dioxide 26 mmol/L (20-31); Chloride 106 mmol/L (98-107); Sodium 144 mmol/L (136-145); Total Protein 6.3 g/dL (5.7-8.2)
[2025-05-27 07:15] LABS: Albumin 3.9 g/dL (3.2-4.8); Bilirubin, Total 0.4 mg/dL (0.2-1.0)
[2025-05-27 07:16] LABS: Alkaline Phosphatase 155 U/L (46-116); Blood Urea Nitrogen 8 mg/dL (9-23); Glucose 117 mg/dL (74-106); Potassium 3.4 mmol/L (3.5-5.1)
[2025-05-27] MEDS: ACETAMINOPHEN 325 MG TAB PO PRN (09:28)
[2025-05-27] MEDS: POTASSIUM EFFERVESENT TAB 25 MEQ PO ONE (11:30)
[2025-05-27] MEDS: ONDANSETRON HCL 4 MG/2 ML VIAL IV PRN (11:31)
--- NOTE | 2025-05-27 13:07 | DVH ---
CLINICAL HISTORY: Rt Hemiplegia and lt facial numbness TECHNIQUE: Routine multiplanar imaging of the brain was performed without gadolinium contrast. COMPARISON: HEAD WITHOUT CONTRAST on DOS: 07/13/22 FINDINGS: There is no abnormal restricted diffusion to suggest acute infarction. There are no significant chronic small vessel ischemic foci. There is no evidence for acute ischemic changes, mass, mass effect, or extra- axial fluid collection. There is no hydrocephalus or midline shift. The cerebral sulci and subarachnoid cisterns are not effaced. The imaged paranasal sinuses are clear. The globes are intact. The midline structures, including the corpus callosum, are unremarkable. The intracranial flow voids are maintained. There is heterogeneous appearance of the bone marrow. IMPRESSION: No acute intracranial abnormality seen. Heterogeneous appearance of the bone marrow, favor bone marrow reconversion. Please correlate with laboratory values.
--- NOTE | 2025-05-27 13:38 | DVHPNRES ---
Progress Note Date Seen: May 27, 2025 Resident Creating Document: BILLIE BOWMAN RESIDENT Medical Necessity Reason Pt with a Central, PICC or Fol: No Subjective Review of Systems Ms. Robert, a 44-year-old female with a history of complex migraine, hemiplegic migraine, two prior ?CVAs , hypertension, diabetes mellitus type 2, morbid obesity, vitamin-D deficiency, anxiety disorder /depression, and chronic microcytic anemia presented to the ED after becoming dizzy, experiencing blurred vision, left facial droop, right sided weakness, and transient unresponsiveness while visiting her father in the ICU; code stroke was activated, and her daughter reports nausea, vomiting, and headache with precipitating aura for the past three days; patient is currently on aspirin and denies other symptoms or modifying factors. patient had similar episodes which was found to have complex migraine and resolved spontaneously over 12-36 hours but needed hospitalization. NIHSS Total: 5 limited history obtained from the daughters who are emotionally overwhelmed. 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 The patient was seen and examined at bedside today . She reports having left facial numbness as if she underwent anesthesia for dental procedure. She could not move her right upper and lower extremity. She has chest tightness and right sided headache. No new complaints reported. Objective vital signs Vital Sign Date Time Temp Pulse Resp B/P (MAP) Pulse Ox O2 Delivery O2 Flow Rate FiO2 05/27/25 12:50 98.1 73 16 116/80 (92) 100 98.1 05/27/25 08:00 Nasal Cannula* 2 28 Total Intake and Output 05/26/25 05/26/25 05/27/25 15:00 23:00 07:00 Intake Total 1000 ml 700 ml Output Total 900 ml Balance 1000 ml -200 ml medications Current Medications Medications Dose Ordered Sig/Ana Route Start Time Stop Time Status Last Admin Dose Admin Sodium Chloride 1,000 ml @ 120 mls/hr Q8H20M IV 05/26/25:15 05/27/25 09:32 120 MLS/HR Acetaminophen/ Hydrocodone Bitart 1 tab Q4HP PRN PO 05/26/25 16:15 Ondansetron HCl 4 mg Q4HP PRN IV 05/26/25 16:15 05/27/25 11:31 4 MG Docusate Sodium 100 mg BIDPRN PRN PO 05/26/25 16:15 Acetaminophen 650 mg Q6HP PRN PO 05/26/25 16:15 05/27/25 09:28 650 MG Morphine Sulfate 2 mg Q4HPRN PRN IV 05/26/25 16:30 05/27/25 00:45 2 MG Aspirin 81 mg DAILY PO 05/26/25 16:15 05/27/25 09:28 81 MG Atorvastatin Calcium 40 mg DAILY PO 05/26/25 16:15 05/27/25 09:28 40 MG Examination Pt is lying on bed General Appearance: Alert, Oriented X3, Cooperative, Mild distress HEENT: Atraumatic, Mucous membranes moist/pink, left facial weakness, with left sided facial deviation. Respiratory: Clear to auscultation, Normal air movement, No added sounds Cardiovascular: Regular rate, Normal S1, Normal S2, No murmurs Abdominal/ : Active bowel sounds, Soft, no distention, no tenderness Extremities: Right upper and lower extremity weakness present, strength 1/5 Skin: No Significant rash, except past surgical scars Neuro: Normal speech, sensorimotor deficits none Psych/Mental Status: Mental status NL, Mood NL Nurse was there as postdoctoral fellow during examination laboratory and microbiology Laboratory Tests 05/27/25 05:50 Test 05/27/25 05:50 Range/Units Serum Glucose 117 H 74-106 mg/dL Microbiology Date/Time Source Procedure Growth Status 05/26/25 15:00 Urine - Vargas [place] Urine Culture - Preliminary No growth Resulted Labs and/or images reviewed: Labs reviewed by me, Image(s) reviewed by me Problem List/Assessment/Plan Problem List/Assessment/Plan Rule out stroke History of complex migraine / hemiplegic migraine Stroke mimic Ruled out aspiration pneumonia Acute headache, focal neurologic deficits on the right arm and legs, and left face, CT head negative for intracranial hemorrhage, neurology evaluation, physical therapy evaluation, aspirin, atorvastatin, further workup with carotid Doppler, bubble study with echo, telemetry for tracing rhythm, interval MRI. given the chronic migraine history with hemiplegia and current complex management with outpatient neurology with Dr. Barrera , previously was on topiramate with Rexulti 2 mg daily, Minipress and relevant history very well pointing towards alternative diagnosis of migraine. Close follow up needed , neuro checks. IV ondansetron for nausea. Chest x-ray, hemodynamically otherwise stable, aspiration precautions, NPO, for now bedside swallow evaluation to complete. IV hydration to continue. As per patient family, prior strokes: Although medication reconciliation pointing towards more of migraine management, longitudinal outpatient neurology follow up to continue. MRI brain without contrast ordered. If MRI negative, stroke workup is not necessary. Neurology consult appreciated: Not a candidate for IV thrombolytics at this time., clinical exam not consistent with presence of large vessel occlusion, can reconsider if LV found on vascular imaging., target BP systolic blood pressure less than 180 Assessment of migraine with Toradol, Benadryl, antiemetic Grade 3 obesity Morbid obesity, BMI 45.7 patient on Wegovy, continue outpatient herrera, weight loss and lifestyle modification we will be helpful. Vitamin-D deficiency Home dose medication to continue when patient is able to tolerate oral diet. Anxiety/depression Patient is at home on sertraline 100 mg daily around with bupropion XL , start medications when patient is able to tolerate oral diet. Microcytic anemia Likely iron-deficiency, MCV 78.6, RDW 17.3, no active bleeding noted. Iron panel to check, to at ferrous sulfate supplementation at discharge if iron- deficiency. PUD prophylaxis: protonix 40mg IV daily DVT prophylaxis: Levonox 40mg/SCD Barriers to discharge: Medical diagnosis and management in progress. Patient lives with family. Independent for ADL. PT consulted. PCP: Dr. King, primary neurologist Dr. Barrera Specialist Relevant To Admission: Code stroke was called, Neurology, consulted. Case discussed with Dr. Gunter. Code Status: Full Code. Discussion for goals of care and care plan needed total 33 minutes bedside. presumptive full code, discussion completed with the daughters at bedside.Impression: Plan discussed with: Patient, Other (RN) My Orders My Orders Orders - BILLIE BOWMAN RESIDENT Procedure Category Date Status Time Brain Head Wo Contrast MRI 05/27/25 Resulted 11:23 * Neurology Consult CONS 05/27/25 Transmitted 11:23 Visit Coding STANDARD RES Billing Provider: EWDINA GUNTER MD Date of Service if different f: May 27, 2025 Common Visit Codes: [id number] INP/OBS CARE(HIGH) Secondary Visit Codes: [id number] CARE PLAN 30 MINUTES BILLIE BOMWAN RESIDENT May 27, 2025 13:37
[2025-05-27] MEDS: HYDROcodone-ACET 5/325MG TAB PO PRN (13:47)
[2025-05-28] VITALS (8 sets, daily range): BP systolic 96–127; BP diastolic 61–91; PULSE 72–86; RESP 16–30; TEMP 97.8–99; O2SAT 99–100
[2025-05-28 07:21] LABS: Hematocrit 36.0 % (36.0-46.0); Hemoglobin 11.9 g/dL (12.2-16.2); Mean Corpuscular Hemoglobin 25.9 pg (28.0-32.0); Mean Corpuscular Volume 78.4 fL (80.0-100.0); Nucleated Red Blood Cells % 0.0 %
[2025-05-28 07:29] LABS: Alanine Aminotransferase 21 U/L (7-40); Albumin 3.9 g/dL (3.2-4.8); Anion Gap 12 (5-15); BUN/Creatinine Ratio 10.6 (10.0-20.0); Bilirubin, Total 0.4 mg/dL (0.2-1.0); Calcium 9.1 mg/dL (8.7-10.4); Carbon Dioxide 27 mmol/L (20-31); Chloride 106 mmol/L (98-107); Potassium 4.1 mmol/L (3.5-5.1); Sodium 145 mmol/L (136-145); Total Protein 6.1 g/dL (5.7-8.2)
[2025-05-28 07:30] LABS: Alkaline Phosphatase 163 U/L (46-116); Blood Urea Nitrogen 7 mg/dL (9-23); Glucose 119 mg/dL (74-106)
--- NOTE | 2025-05-28 16:00 | DVHPNRES ---
Progress Note Date Seen: May 28, 2025 Resident Creating Document: BILLIE BOWMAN RESIDENT Medical Necessity Reason Pt with a Central, PICC or Fol: No Subjective Review of Systems Ms. Robert, a 44-year-old female with a history of complex migraine, hemiplegic migraine, two prior ?CVAs , hypertension, diabetes mellitus type 2, morbid obesity, vitamin-D deficiency, anxiety disorder /depression, and chronic microcytic anemia presented to the ED after becoming dizzy, experiencing blurred vision, left facial droop, right sided weakness, and transient unresponsiveness while visiting her father in the ICU; code stroke was activated, and her daughter reports nausea, vomiting, and headache with precipitating aura for the past three days; patient is currently on aspirin and denies other symptoms or modifying factors. patient had similar episodes which was found to have complex migraine and resolved spontaneously over 12-36 hours but needed hospitalization. NIHSS Total: 5 limited history obtained from the daughters who are emotionally overwhelmed. 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 The patient was seen and examined at bedside today . She reports improvement in all her symptoms, however she reports having migraine headache. No new complaints reported. Objective vital signs Vital Sign Date Time Temp Pulse Resp B/P (MAP) Pulse Ox O2 Delivery O2 Flow Rate FiO2 05/28/25 13:00 98.3 76 19 104/61 (75) 100 98.3 05/28/25 08:00 Nasal Cannula* 2 28 Total Intake and Output 05/27/25 05/27/25 05/28/25 14:59 22:59 06:59 Intake Total 0 ml 500 ml Balance 0 ml 500 ml medications Current Medications Medications Dose Ordered Sig/Ana Route Start Time Stop Time Status Last Admin Dose Admin Sodium Chloride 1,000 ml @ 120 mls/hr Q8H20M IV 05/26/25 16:15 05/28/25 09:21 120 MLS/HR Acetaminophen/ Hydrocodone Bitart 1 tab Q4HP PRN PO 05/26/25 16:15 05/28/25 14:10 1 TAB Ondansetron HCl 4 mg Q4HP PRN IV 05/26/25 16:15 05/27/25 11:31 4 MG Docusate Sodium 100 mg BIDPRN PRN PO 05/26/25 16:15 Acetaminophen 650 mg Q6HP PRN PO 05/26/25 16:15 05/27/25 09:28 650 MG Morphine Sulfate 2 mg Q4HPRN PRN IV 05/26/25 16:30 05/28/25 08:20 2 MG Aspirin 81 mg DAILY PO 05/26/25 16:15 05/28/25 09:15 81 MG Atorvastatin Calcium 40 mg DAILY PO 05/26/25 16:15 05/28/25 09:15 40 MG Examination Examination Pt is lying on bed General Appearance: Alert, Oriented X3, Cooperative, Mild distress HEENT: Atraumatic, Mucous membranes moist/pink, left facial weakness, with left sided facial deviation. Respiratory: Clear to auscultation, Normal air movement, No added sounds Cardiovascular: Regular rate, Normal S1, Normal S2, No murmurs Abdominal/ : Active bowel sounds, Soft, no distention, no tenderness Extremities: Right upper and lower extremity weakness present, strength 1/5 Skin: No Significant rash, except past surgical scars Neuro: Normal speech, sensorimotor deficits none Psych/Mental Status: Mental status NL, Mood NL Nurse was there as production supervisor during examination laboratory and microbiology Laboratory Tests 05/28/25 06:00 Test 05/28/25 06:00 Range/Units Serum Glucose 119 H 74-106 mg/dL Microbiology Date/Time Source Procedure Growth Status 05/26/25 15:00 Urine - [place] Urine Culture - Final Complete Labs and/or images reviewed: Labs reviewed by me, Image(s) reviewed by me Problem List/Assessment/Plan Problem List/Assessment/Plan Rule out stroke History of complex migraine / hemiplegic migraine Stroke mimic Ruled out aspiration pneumonia Acute headache, Focal neurologic deficits on the right arm and legs, and left face, CT head negative for intracranial hemorrhage, neurology evaluation, physical therapy evaluation, aspirin, atorvastatin, further workup with carotid Doppler, bubble study with echo, telemetry for tracing rhythm, interval MRI. given the chronic migraine history with hemiplegia and current complex management with outpatient neurology with Dr. Barrera , previously was on topiramate with Rexulti 2 mg daily, Minipress and relevant history very well pointing towards alternative diagnosis of migraine. Close follow up needed , neuro checks. IV ondansetron for nausea. Chest x-ray, hemodynamically otherwise stable, aspiration precautions, NPO, for now bedside swallow evaluation to complete. IV hydration to continue. As per patient family, prior strokes: Although medication reconciliation pointing towards more of migraine management, longitudinal outpatient neurology follow up to continue. MRI brain without contrast ordered. No acute abnormality detected. Neurology consult appreciated: Not a candidate for IV thrombolytics at this time., clinical exam not consistent with presence of large vessel occlusion, can reconsider if LV found on vascular imaging., target BP systolic blood pressure less than 180 Waiting for another neurology consult for managing her right-sided hemiplegia. Assessment of migraine with Toradol, Benadryl, antiemetic Grade 3 obesity Morbid obesity, BMI 45.7 patient on Wegovy, continue outpatient herrera, weight loss and lifestyle modification we will be helpful. Vitamin-D deficiency Home dose medication to continue when patient is able to tolerate oral diet. Anxiety/depression Patient is at home on sertraline 100 mg daily around with bupropion XL , start medications when patient is able to tolerate oral diet. Microcytic anemia Likely iron-deficiency, MCV 78.6, RDW 17.3, no active bleeding noted. Iron panel to check, to at ferrous sulfate supplementation at discharge if iron- deficiency. PUD prophylaxis: protonix 40mg IV daily DVT prophylaxis: Levonox 40mg/SCD Barriers to discharge: Medical diagnosis and management in progress. Patient lives with family. Independent for ADL. PT consulted. PCP: Dr. King, primary neurologist Dr. Barrera Specialist Relevant To Admission: Code stroke was called, Neurology, consulted. Case discussed with Dr. Gunter. Code Status: Full Code. Discussion for goals of care and care plan needed total 33 minutes bedside. presumptive full code, discussion completed with the daughters at bedside.Impression: Plan discussed with: Patient, Other (RN) Plan discussed with: Patient, Daughter, Other (RN) My Orders My Orders Orders - BILLIE BOWMAN Procedure Category Date Status Time Pt Request For Service PT 05/28/25 Logged 12:30 Visit Coding STANDARD RES Billing Provider: EDWINA GUNTER MD Date of Service if different f: May 28, 2025 BILLIE BOWMAN RESIDENT May 28, 2025 16:00
--- NOTE | 2025-05-28 22:38 | DVHINCON2 ---
Date of service: May 28, [address] Curiel Reason for Consultation Hemiplegic migraine with right-sided complete weakness, left facial weakness History of Present Illness Ms. Robert is a 44 years old right-handed female with a history of anemia, stroke, endometrial cancer, obesity, PFO, migraine headache, he was admitted to the [facility] on 05/26/2025 with a chief company of weakness, at th is time, she is alert and fully oriented, but not a good historian She relates that she came to the ICU to visit her father, she remembers going to a bathroom in the waiting area, but the next memory was waking up in the ICU. He also had one-sided weakness, at the beginning she said left side, but later she related that she did not remember which side was weak. According to ER note, the patient developed weakness on 05/26/2025, when she was visiting her father in the [facility] ICU, he developed dizziness, blurry vision, weakness, facial drooping, and then she became nonresponsive, rapid response was called and the patient was brought to the emergency room. Upon arrival to the ER, she was not following commands, she had facial drooping, left-sided weakness. At home, she took aspirin, rosuvastatin She reports that she started have migraine headache around 05/23/2025, and headache still persists In 2022, the patient developed right-sided weakness, along with intense headache, the patient was seen in the hospital in [place], after MRI she was said to have stroke, the patient is given aspirin and heparin, reports a good recovery In 02/2025, along with intense head, the patient developed right-sided weakness, the patient is admitted to a [facility], she was said to have stroke after MR brain scan, he was also found to have PFO, the patient is discharged with aspirin and rosuvastatin, she reports good recovery All her life, she has a periodic intense global throbbing headache with associated photophobia, sonophobia, heightened sensitivity to odor, she has a headache 3 times monthly, and headache lasts for four days is time, she sees saige ck before the headache attack the patient is on topiramate 25 mg two tablets b.i.d. with no improvement, she has been prescribed but has not received Aimovig 140 mg subcutaneous monthly WBC/HB/PLT/MCV, 05/28/2025: 4.7/11.9/246/78.4 BMP 05/28/2025: Unremarkable Liver function tests, 05/28/2025: Unremarkable MRI head, 05/27/2025: No acute intracranial abnormality seen. Heterogeneous appearance of the bone marrow, favor bone marrow reconversion. Please correlate with laboratory values. Past Medical History Anemia, stroke, endometrial cancer, obesity, PFO Past Surgical History , hysterectomy Family History: Chronic obstructive pulmonary disease G8 MOTHER FH: CHF (congestive heart failure) FH: anemia G8 MOTHER Family History Hypertension, diabetes, congestive heart failure, COPD, migraine headache Social History She has not tobacco smoke, no history abuse Allergies: Coded Allergies: Latex (Verified Allergy, Unknown, 07/13/22) Home Meds Active Scripts Nitrofurantoin Monohydrate Mac (Macrobid) 100 Mg Cap, 100 MG PO BID for 7 Days, #14 CAP Prov:RANI SHABAZZ MD 04/07/23 Promethazine-Dm (Promethazine Dm 6.25-15 mg/5Ml) 1 Pascale Pascale, 5 ML PO TID, #150 ML Prov:TIO HOLLAND 06/22/22 Ibuprofen (Ibuprofen) 800 Mg Tab, 1 TAB PO TID, #30 TAB Prov:TIO HOLLAND 06/22/22 Amoxicillin & Pot Clavulanate (Amoxicillin/Potassium Cla) 875 Mg Tab, 1 TAB PO BID, #20 TAB Prov:TIO HOLLAND 06/22/22 Review of Systems As above, the other systems are negative Vital Signs Vital Signs Date Time Temp Pulse Resp B/P (MAP) Pulse Ox O2 Delivery O2 Flow Rate FiO2 05/28/25 21:00 97.8 77 18 127/71 (89) 100 97.8 05/28/25 08:00 Nasal Cannula* 2 28 Physical Exam GENERAL EXAM: General: the patient is well developed and nourished. No acute distress. HEENT: Normocephalic, neck is supple, no carotid bruits. No mass. RESPIRATORY: Normal respiratory effort with symmetrical lung expansion. Lungs clear to auscultation. CARDIOVASCULAR: Regular rate and rhythm with no murmurs. S1, S2. ABDOMEN: Soft, nontender, normal bowel sound NEUROLOGICAL: MENTAL STATUS: Awake and alert. Oriented to person, place, time and general circumstances. Able to give personal history. SPEECH, LANGUAGE, HIGHER CORTICAL FUNCTION: no aphasia, he developed stuttering during conversation/ CRANIAL NERVES: #2: Intact visual marie to confrontation. The optic discs were sharp. . #3,4,6: Pupils are equal, round and reactive. EOMs full and conjugate. #5: Facial sensation diminished in the left face. Mandibular strength intact. #7: Facial muscles symmetrical and strength intact. #8: Hearing grossly normal to voice. #9,10: Uvula and soft palate rise in the midline. Swallow and voice are normal. #11: Trapezius and sternomastoid strength intact bilaterally. #12: Tongue midline. No fasciculations or atrophy. SENSATION: Sensation to touch and pinprick is diminished in the right arm than leg MOTOR: Normal tone in the upper and lower extremity. Normal muscle bulk. No fasciculations. No abnormal movements or posturing. Muscle strength of the major groups in the left extremities is 5/5. Muscle strength of the major groups in the right extremities is: Arm: 3-4/5, le/5 REFLEXES: Deep tendon reflexes are symmetrical. No pathological reflexes. CEREBELLAR/COORDINATION: Finger to nose is normal in the left arm GAIT/STATION: deferred. Labs/Diagnostic Data Labs Test 05/28/25 06:00 05/26/25 16:23 05/26/25 13:54 05/26/25 13:50 Range/Units White Blood Count 4.7 4.4-10.8 10^3/uL Red Blood Count 4.60 4.0-5.20 10^6/uL Hemoglobin 11.9 L 12.2-16.2 g/dL Hematocrit 36.0 36.0-46.0 % Mean Corpuscular Volume 78.4 L 80.0-100.0 fL Mean Corpuscular Hemoglobin 25.9 L 28.0-32.0 pg Mean Corpuscular Hemoglobin Concent 33.0 32.0-36.0 g/dL Red Cell Distribution Width 17.3 H 11.8-14.3 % Platelet Count 246 140-450 10^3/uL Mean Platelet Volume 7.1 6.9-10.8 fL Neutrophils (%) (Auto) 78.4 37.0-80.0 % Lymphocytes (%) (Auto) 16.0 10.0-50.0 % Monocytes (%) (Auto) 4.8 0.0-12.0 % Eosinophils (%) (Auto) 0.7 0.0-7.0 % Basophils (%) (Auto) 0.1 0.0-2.0 % Neutrophils # (Auto) 3.7 1.6-8.6 10 ^3/uL Lymphocytes # (Auto) 0.8 0.4-5.4 10 ^3/uL Monocytes # (Auto) 0.2 0-1.3 10 ^3/uL Eosinophils # (Auto) 0 0-0.8 10 ^3/uL Basophils # (Auto) 0 0-0.2 10 ^3/uL Nucleated Red Blood Cells 0.0 % Sodium Level 145 136-145 mmol/L Potassium Level 4.1 3.5-5.1 mmol/L Chloride Level 106 98-107 mmol/L Carbon Dioxide Level 27 20-31 mmol/L Anion Gap 12 5-15 Blood Urea Nitrogen 7 L 9-23 mg/dL Creatinine 0.66 0.550-1.02 mg/dL Glomerular Filtration Rate Calc 111 >90 mL/min BUN/Creatinine Ratio 10.6 10.0-20.0 Serum Glucose 119 H 74-106 mg/dL Calcium Level 9.1 8.7-10.4 mg/dL Total Bilirubin 0.4 0.2-1.0 mg/dL Aspartate Amino Transferase (AST) 17 13-40 U/L Alanine Aminotransferase (ALT) 21 7-40 U/L Alkaline Phosphatase 163 H 46-116 U/L Total Protein 6.1 5.7-8.2 g/dL Albumin 3.9 3.2-4.8 g/dL Troponin I High Sensitivity < 3 L </=34 ng/L Blood Gas Specimen Type Arterial Blood Gas Sample Site Right radial Blood Gas Patient Temperature 37.0 Arterial Blood Date Drawn [id number] Arterial Blood pH 7.426 7.350-7.450 Arterial Blood Partial Pressure CO2 39.9 32.0-45.0 mmHg Arterial Blood Partial Pressure O2 87.5 83.0-108.0 mmHg Arterial Blood HCO3 25.7 21.0-28.0 mmol/L Arterial Blood Oxygen Saturation 95.7 94.0-98.0 % Arterial Blood Base Excess 1.3 -2.0-3.0 mmol/L Arterial Blood Oxyhemoglobin 94.4 94.0-98.0 % Arterial Blood Carboxyhemoglobin 1.1 0.5-1.5 % Arterial Blood Methemoglobin 0.3 0.0-1.5 % Arterial Blood Deoxyhemoglobin 4.2 0.0-5.0 % Zeus Test Yes Blood Gas Total Hemoglobin 14.10 12.0-16.0 g/dL Blood Gas Liter Flow 2.00 Blood Gas Modality Nasal cannula FiO2 % 28.0 Prothrombin Time 10.8 9.3-11.8 sec Prothrombin Time INR 1.02 0.9-1.15 Activated Partial Thromboplast Time 27.8 24.5-34.5 SEC Magnesium Level 2.0 1.6-2.6 mg/dL B-Type Natriuretic Peptide 8.55 0-100 pg/mL Microbiology Date/Time Source Procedure Growth Status 05/26/25 15:00 Urine - [place] Urine Culture - Final Complete Assessment Recurrent acute stroke symptoms along with intense headache, her MR brain scan dated 05/27/2025 he has no evidence of acute or chronic strokes Hemiplegic migraine ? Stroke Status migrainous Migraine with aura Hemiplegic migraine Chronic migraine Plan/Recommendation Monitoring Supportive treatment Med surge care Aspirin 81 mg daily Lipitor 40 mg daily Topiramate 75 mg b.i.d. Current pain management She has been advised to avoid Triptan and ergot agent A trial of dexamethasone 10 mg IV q.d., IV fluids 100 mg per hour, Reglan 15 mg t.i.d. Physical therapy Follow up with her doctors on discharge Further address PFO as outpatient More recommendation per clinical course Prognosis: Poor This medical document was created using an electronic medical record system with [employer] dictation system. Although this document has been carefully reviewed, there may still be some phonetic and typographical errors. These areas are purely typographical due to imperfections of the software programs, and do not reflect any compromise in the patient's medical care. Plan discussed with: Patient, Other EMEKA DUVALL MD May 28, 2025 22:38
[2025-05-28] MEDS: SODIUM CHLORIDE 0.9% 1,000 ML IV SCH (23:30)
[2025-05-28] MEDS: TOPIRAMATE 25 MG TAB PO ONE (23:50)
[2025-05-29] MEDS: TOPIRAMATE 25 MG TAB PO ONE (00:15)
[2025-05-29 01:00] VITALS: BP 113/71; PULSE 72; RESP 19; TEMP 97; O2SAT 99
[2025-05-29 05:00] VITALS: BP 116/73; PULSE 76; RESP 18; TEMP 97.5; O2SAT 99
[2025-05-29] MEDS: METOCLOPRAMIDE HCL 10 MG TAB PO SCH (06:00)
[2025-05-29 06:21] LABS: Mean Corpuscular Hemoglobin 26.1 pg (28.0-32.0)
[2025-05-29 06:23] LABS: Anion Gap 11 (5-15); Carbon Dioxide 26 mmol/L (20-31); Chloride 104 mmol/L (98-107); Hematocrit 40.6 % (36.0-46.0); Hemoglobin 13.5 g/dL (12.2-16.2); Mean Corpuscular Volume 78.4 fL (80.0-100.0); Nucleated Red Blood Cells % 0.0 %; Potassium 4.1 mmol/L (3.5-5.1); Sodium 141 mmol/L (136-145)
[2025-05-29 06:25] LABS: Calcium 9.7 mg/dL (8.7-10.4)
[2025-05-29 06:34] LABS: BUN/Creatinine Ratio 7.6 (10.0-20.0); Blood Urea Nitrogen < 5 mg/dL (9-23); Glucose 188 mg/dL (74-106)
[2025-05-29 08:00] VITALS: PULSE 91; RESP 18; O2SAT 99
[2025-05-29 09:00] VITALS: BP 132/80; PULSE 91; RESP 17; TEMP 97.7; O2SAT 99
[2025-05-29] MEDS: TOPIRAMATE 25 MG TAB PO SCH (10:05)
[2025-05-29] MEDS ORDERED: ATOR20TA50 PO (11:42)
[2025-05-29] MEDS ORDERED: TOPI25TA84 PO (11:42)
[2025-05-29] MEDS ORDERED: ASPI-325 PO (11:42)
[2025-05-29 12:56] VITALS: BP 120/69; PULSE 90; RESP 19; TEMP 98.4; O2SAT 95
--- NOTE | 2025-05-29 18:48 | DVHDSRES ---
Discharge Summary Date of Admission Resident Creating Document: BILLIE BOWMAN May 26, 2025 at 16:10 Date of Discharge: May 29, 2025 Labs/Diagnostic Data: Laboratory Results Test 05/29/25 05:13 05/28/25 06:00 05/26/25 16:23 05/26/25 13:54 White Blood Count 6.6 10^3/uL (4.4-10.8) Red Blood Count 5.18 10^6/uL (4.0-5.20) Hemoglobin 13.5 g/dL (12.2-16.2) Hematocrit 40.6 % (36.0-46.0) Mean Corpuscular Volume 78.4 fL (80.0-100.0) Mean Corpuscular Hemoglobin 26.1 pg (28.0-32.0) Mean Corpuscular Hemoglobin Concent 33.2 g/dL (32.0-36.0) Red Cell Distribution Width 17.2 % (11.8-14.3) Platelet Count 264 10^3/uL (140-450) Mean Platelet Volume 7.3 fL (6.9-10.8) Neutrophils (%) (Auto) 91.4 % (37.0-80.0) Lymphocytes (%) (Auto) 7.6 % (10.0-50.0) Monocytes (%) (Auto) 0.9 % (0.0-12.0) Eosinophils (%) (Auto) 0.1 % (0.0-7.0) Basophils (%) (Auto) 0.0 % (0.0-2.0) Neutrophils # (Auto) 6.0 10 ^3/uL (1.6-8.6) Lymphocytes # (Auto) 0.5 10 ^3/uL (0.4-5.4) Monocytes # (Auto) 0.1 10 ^3/uL (0-1.3) Eosinophils # (Auto) 0 10 ^3/uL (0-0.8) Basophils # (Auto) 0 10 ^3/uL (0-0.2) Nucleated Red Blood Cells 0.0 % Sodium Level 141 mmol/L (136-145) Potassium Level 4.1 mmol/L (3.5-5.1) Chloride Level 104 mmol/L (98-107) Carbon Dioxide Level 26 mmol/L (20-31) Anion Gap 11 (5-15) Blood Urea Nitrogen < 5 mg/dL (9-23) Creatinine 0.66 mg/dL (0.550-1.02) Glomerular Filtration Rate Calc 111 mL/min (>90) BUN/Creatinine Ratio 7.6 (10.0-20.0) Serum Glucose 188 mg/dL (74-106) Calcium Level 9.7 mg/dL (8.7-10.4) Total Bilirubin 0.4 mg/dL (0.2-1.0) Aspartate Amino Transferase (AST) 17 U/L (13-40) Alanine Aminotransferase (ALT) 21 U/L (7-40) Alkaline Phosphatase 163 U/L (46-116) Total Protein 6.1 g/dL (5.7-8.2) Albumin 3.9 g/dL (3.2-4.8) Troponin I High Sensitivity < 3 ng/L (</=34) Blood Gas Specimen Type Arterial Blood Gas Sample Site Right radial Blood Gas Patient Temperature 37.0 Arterial Blood Date Drawn [id number] Arterial Blood pH 7.426 (7.350-7.450) Arterial Blood Partial Pressure CO2 39.9 mmHg (32.0-45.0) Arterial Blood Partial Pressure O2 87.5 mmHg (83.0-108.0) Arterial Blood HCO3 25.7 mmol/L (21.0-28.0) Arterial Blood Oxygen Saturation 95.7 % (94.0-98.0) Arterial Blood Base Excess 1.3 mmol/L (-2.0-3.0) Arterial Blood Oxyhemoglobin 94.4 % (94.0-98.0) Arterial Blood Carboxyhemoglobin 1.1 % (0.5-1.5) Arterial Blood Methemoglobin 0.3 % (0.0-1.5) Arterial Blood Deoxyhemoglobin 4.2 % (0.0-5.0) Zeus Test Yes Blood Gas Total Hemoglobin 14.10 g/dL (12.0-16.0) Blood Gas Liter Flow 2.00 Blood Gas Modality Nasal cannula FiO2 % 28.0 Test 05/26/25 13:50 Prothrombin Time 10.8 sec (9.3-11.8) Prothrombin Time INR 1.02 (0.9-1.15) Activated Partial Thromboplast Time 27.8 SEC (24.5-34.5) Magnesium Level 2.0 mg/dL (1.6-2.6) B-Type Natriuretic Peptide 8.55 pg/mL (0-100) Other Laboratory Tests 05/29/25 05:13 Brief Hx & Hospital Course: Ms. Robert, a 44-year-old female with a history of complex migraine, hemiplegic migraine, two prior ?CVAs , hypertension, diabetes mellitus type 2, morbid obesity, vitamin-D deficiency, anxiety disorder /depression, and chronic microcytic anemia presented to the ED after becoming dizzy, experiencing blurred vision, left facial droop, right sided weakness, and transient unresponsiveness while visiting her father in the ICU; code stroke was activated, and her daughter reports nausea, vomiting, and headache with precipitating aura for the past three days; patient is currently on aspirin and denies other symptoms or modifying factors. patient had similar episodes which was found to have complex migraine and resolved spontaneously over 12-36 hours but needed hospitalization. NIHSS Total: 5 limited history obtained from the daughters who are emotionally overwhelmed. 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 Brief hospital course: On further evaluation, head CT wo contrast and brain MRI wo contrast ruled out stroke. Symptomatic management for headache and migraine was provided. Neurology consultation was appreciated. All her neurologic symptoms significantly improved. According to Neuro recommendations patient was discharged home on topiramate, aspirin, lipitor. She was advised to follow up outpatient with DC clinic, PCP, Neurology. Patient and daughter verbalized understanding. Examination Pt is lying on bed General Appearance: Alert, Oriented X3, Cooperative, Mild distress HEENT: Atraumatic, Mucous membranes moist/pink, left facial weakness, with left sided facial deviation: improved. Respiratory: Clear to auscultation, Normal air movement, No added sounds Cardiovascular: Regular rate, Normal S1, Normal S2, No murmurs Abdominal/ : Active bowel sounds, Soft, no distention, no tenderness Extremities: Right upper and lower extremity weakness present,but significantly improved. strength 4/5 Skin: No Significant rash, except past surgical scars Neuro: Normal speech, sensorimotor deficits none Psych/Mental Status: Mental status NL, Mood NL Nurse was there as laborer drying department during examination Case discussed with Dr. Evangelista. Code Status: Full Code. Discussion for goals of care and care plan needed total 33 minutes bedside. presumptive full code, discussion completed with the daughters at bedside. Operations or Procedures PATIENT: TAYE ROBERTT: [id number]: [id number] : 1980 LOC: ER ROOM / BED: / AGE / SEX: 44 / F ADM STATUS: REG ER SERVICE 133 ORDERING PHYSICIAN: HATTIE SHERIDAN MD PROCEDURE(s): CXR1 - CHEST XRAY 1 VIEW REASON: facial droop ORDER NUMBER(s): [id number], ACCESSION NUMBER(s): [id number] CHEST RADIOGRAPH INDICATION: facial droop TECHNIQUE: Single frontal view of the chest was obtained COMPARISON: CXR1 on DOS: 07/13/22, CHEST XRAY 1 VIEW on DOS: 07/13/22, CXR1 on DOS: 06/22/22 FINDINGS: Lines and Tubes: None Lungs: Or inspiratory effort Pleura: No effusion. No pneumothorax. Cardiomediastinal contours: Unremarkable Bones: No acute osseous abnormality. IMPRESSION: 1. Poor inspiratory effort. ENT: BRADENTAYE AVELINAT: [id number]: [id number] : 1980 LOC: ER ROOM / BED: / AGE / SEX: 44 / F ADM STATUS: REG ER SERVICE 1331 ORDERING PHYSICIAN: HATTIE SHERIDAN MD PROCEDURE(s): CTH - STROKE CTH REASON: facial droop ORDER NUMBER(s): [id number], ACCESSION NUMBER(s): [id number] CT STROKE CTH INDICATION: facial droop EXAM DATE: 05/26/2025 01:36 PM COMPARISON: HEAD WITHOUT CONTRAST on DOS: 07/13/22 TECHNIQUE: CT of the head without intravenous contrast. RADIATION DOSE: CTDIvol: 25 mGy, DLP: 250 mGy*cm FINDINGS: There is no evidence of acute intracranial hemorrhage, extra-axial collection, mass effect, midline shift, herniation or hydrocephalus. The ventricles, sulci and cisterns are age appropriate. The todd-white differentiation is intact. The visualized paranasal sinuses and mastoid air cells are clear. The surrounding soft tissues and osseous structures are unremarkable. Moderate periventricular white matter disease is present, likely secondary to microvascular angiopathy. IMPRESSION: No evidence of acute intracranial hemorrhage, mass effect or hydrocephalus. ENT: BRADENTAYE SKYLARACCT: [id number]: [id number] : 1980 LOC: [facility] ROOM / BED: [facility] / A AGE / SEX: 44 / F ADM STATUS: ADM IN SERVICE 1610 ORDERING PHYSICIAN: LEONARD JOHNSON RESIDENT PROCEDURE(s): CARCL - CAROTID DUPLX W COLOR DOP REASON: rule out carotid stenosis ORDER NUMBER(s): [id number], ACCESSION NUMBER(s): [id number] INDICATION: rule out carotid stenosis TECHNIQUE: Real-time ultrasound images of the neck vessels with todd-scale, color and wave Doppler were obtained. COMPARISON: None FINDINGS: Mild atherosclerotic plaque bilaterally. The following peak systolic velocities were recorded in cm/sec: Right internal carotid: 84 Right common carotid: 86 Right external carotid: 96 Right internal/common carotid ratio: 1.0 Left internal carotid: 89 Left common carotid: 79 Left external carotid: 104 Left internal/common carotid ratio: 1.1 Right vertebral artery: Patent with normal antegrade direction of flow. Left vertebral artery: Patent with normal antegrade direction of flow. IMPRESSION: No hemodynamically significant stenosis by velocity criteria. PATIENT: TAYE ROBERTACCT: [id number] UNIT: [id number] : 1980 LOC: [facility] ROOM / BED: 0291 / A AGE / SEX: 44 / F ADM STATUS: ADM IN SERVICE 1123 ORDERING PHYSICIAN: BILLIE BOWMAN RESIDENT PROCEDURE(s): MBHL - BRAIN HEAD WO CONTRAST REASON: Rt Hemiplegia and lt facial numbness ORDER NUMBER(s): [id number], ACCESSION NUMBER(s): [id number] CLINICAL HISTORY: Rt Hemiplegia and lt facial numbness TECHNIQUE: Routine multiplanar imaging of the brain was performed without gadolinium contrast. COMPARISON: HEAD WITHOUT CONTRAST on DOS: 07/13/22 FINDINGS: There is no abnormal restricted diffusion to suggest acute infarction. There are no significant chronic small vessel ischemic foci. There is no evidence for acute ischemic changes, mass, mass effect, or extra- axial fluid collection. There is no hydrocephalus or midline shift. The cerebral sulci and subarachnoid cisterns are not effaced. The imaged paranasal sinuses are clear. The globes are intact. The midline structures, including the corpus callosum, are unremarkable. The intracranial flow voids are maintained. There is heterogeneous appearance of the bone marrow. IMPRESSION: No acute intracranial abnormality seen. Heterogeneous appearance of the bone marrow, favor bone marrow reconversion. Please correlate with laboratory values. ATED BY: ZINA PARRISH MD DICTATED DATE/TIME: 05/27/25 1305 SIGNED BY: ZINA PARRISH MD SIGNED DATE/TIME: 05/27/25 1305 CC: Condition at Discharge: Stable Final Diagnosis/Problems List Ruled out stroke History of complex migraine / hemiplegic migraine Stroke mimic Ruled out aspiration pneumonia Grade 3 obesity Morbid obesity, BMI 45.7 Anxiety/depression Microcytic anemia Discharge Disposition: Home Discharge Instruct/Medications Diet: Regular Activity: No Restrictions, As Tolerated Follow Up/Referral: outpatient with DC clinic with Dr. Bowman ( [facility] ), Pcp and neurology Medications: as per EMR Scheduled Amoxicillin & Pot Clavulanate (Amoxicillin/Potassium Cla), 1 TAB PO BID Aspirin (Aspirin Low Dose), 81 MG PO DAILY Atorvastatin Calcium (Atorvastatin Calcium), 40 MG PO DAILY Ibuprofen (Ibuprofen), 1 TAB PO TID Nitrofurantoin Monohydrate Mac (Macrobid), 100 MG PO BID Promethazine-Dm (Promethazine Dm 6.25-15 mg/5Ml), 5 ML PO TID Topiramate (Topiramate), 75 MG PO BID Discharge Statement: "Patient was advised to return to the ER or call 911 if any headaches, dizziness, shortness of breath, chest pain, abdominal pain, bleeding, fevers, or worsening of medical condition. Patient was counseled about treatment plan, medications, possible side effects, patientverbalized understanding. All questions were answered to the best of my ability. This discharge took greater then 30 minutes in planning, reviewing documentation, counseling the patient, and discussing with other team members." ASSESSMENT ASSESSMENT Assessment Visit Coding STANDARD RES Billing Provider: JUDI EVANGELISTA MD Date of Service if different f: May 29, 2025 Common Visit Codes: 83710-LYG/OBS DISCH DAY >30min COLBYBILLIE Gomez RESIDENT May 29, 2025 18:48 JUDI EVANGELISTA MD May 30, 2025 10:01
== END 2025-05-29 13:35 | disposition home or self-care (01) | DRG 54 ==
LOC: ER 13:30 → OVERFLOW 16:10 → TELE-WESTW 17:41 → WEST WING 05-27 07:54
PROVIDERS: ADMIT Internal Medicine; ATTEND Internal Medicine
DX: G43.101 Migraine with aura, not intractable, with status migrainosus (principal); Q21.12 Patent foramen ovale; D50.9 Iron deficiency anemia, unspecified; F32.A Depression, unspecified; E66.813 Obesity, class 3; G43.401 Hemiplegic migraine, not intractable, with status migrainosus; F41.9 Anxiety disorder, unspecified; E55.9 Vitamin D deficiency, unspecified; Z68.42 Body mass index [BMI] 45.0-49.9, adult; Z86.73 Personal history of transient ischemic attack (TIA), and cerebral infarction without residual deficits; Z91.040 Latex allergy status; Z85.42 Personal history of malignant neoplasm of other parts of uterus; Z90.710 Acquired absence of both cervix and uterus; Z82.5 Family history of asthma and other chronic lower respiratory diseases; Z82.49 Family history of ischemic heart disease and other diseases of the circulatory system; Z83.2 Family history of diseases of the blood and blood-forming organs and certain disorders involving the immune mechanism; Z83.3 Family history of diabetes mellitus; Z79.82 Long term (current) use of aspirin; Z79.899 Other long term (current) drug therapy
CPT/HCPCS: 36415; 36600; 70450; 70551; 71045; 80048; 80053; 82805; 83735; 83880; 84484; 85025; 85610; 85730; 87086; 93306; 93886; 96374; 97110; 97116; 97163; 97530; 99291; G0378; J1100; J2405; J7060